=== PATIENT | female | born 1995 | race Caucasian/White ===

== ENCOUNTER 2018-12-19 15:08 | Emergency (ER) | payer OTHER ==
[~2018-12-19] VITALS: Ht 165.1 cm; Wt 72.6 kg
[~2018-12-19 15:08] MED LIST: CLOT1TC TOP; LORA10ER PO; METPHE18ER PO; TOBR.3OPSO OP; Veetids 500500 MG PO
[2018-12-19] MEDS ORDERED: BENZ100A PO (16:05)
[2018-12-19] MEDS ORDERED: Ventolin/Prove6.7 GM INH (16:05)
[2018-12-19] MEDS ORDERED: ROBITUSSIN COU237 ML PO (16:05)
== END 2018-12-19 16:14 | disposition home or self-care (01) ==
LOC: ER 15:08
DX: J20.9 Acute bronchitis, unspecified (principal); J45.909 Unspecified asthma, uncomplicated; F17.200 Nicotine dependence, unspecified, uncomplicated
CPT/HCPCS: 94640; 99283-25

== ENCOUNTER 2020-02-04 13:05 | Emergency (ER) | payer BC ==
[~2020-02-04] VITALS: Ht 165.1 cm; Wt 65.8 kg
[~2020-02-04 13:05] MED LIST changes: +BENZ100A PO; +ROBITUSSIN COU237 ML PO; +Ventolin/Prove6.7 GM INH
[2020-02-04] MEDS ORDERED: Prednisone20 MG PO (14:36)
== END 2020-02-04 16:16 | disposition home or self-care (01) ==
LOC: ER 13:05
DX: J45.901 Unspecified asthma with (acute) exacerbation (principal); F17.200 Nicotine dependence, unspecified, uncomplicated; Z79.899 Other long term (current) drug therapy
CPT/HCPCS: 71045; 94640; 99285-25; 99407; J7512

== ENCOUNTER → 2020-06-11 | Outpatient (CLI) | payer BC, OTHER ==
[~2020-06-11] MED LIST changes: +Prednisone20 MG PO
== END | disposition home or self-care (01) ==
LOC: LAB SHORT 08:21 → PLD 08:21
DX: L30.9 Dermatitis, unspecified (principal)
CPT/HCPCS: 88305; 88312

== ENCOUNTER → 2021-11-20 | Outpatient (CLI) | payer BC, OTHER | END | disposition home or self-care (01) | LOC: LAB 16:29 → LAB SHORT 16:29 | DX: L02.01 Cutaneous abscess of face (principal) | CPT/HCPCS: 87070; 87075; 87076; 87205 ==

== ENCOUNTER 2023-03-07 12:57 | Emergency (ER) | payer OTHER ==
[~2023-03-07] VITALS: Ht 167.6 cm; Wt 74.8 kg
[~2023-03-07 12:57] MED LIST changes: +CEPH500 PO; +Pyridium100 MG PO
[2023-03-07 13:12] VITALS: BP 133/79
[2023-03-07] MEDS ORDERED: PENVK500 PO (13:42)
== END 2023-03-07 14:08 | disposition home or self-care (01) ==
LOC: ER 12:57
DX: J02.0 Streptococcal pharyngitis (principal); F17.200 Nicotine dependence, unspecified, uncomplicated
CPT/HCPCS: 87430; 99283; A9270; J1100

== ENCOUNTER 2023-03-24 09:21 | Emergency (ER) | payer SELFPAY ==
[~2023-03-24] VITALS: Ht 162.6 cm; Wt 72.6 kg
[~2023-03-24 09:21] MED LIST changes: +PENVK500 PO
[2023-03-24 10:05] VITALS: BP 135/93
== END 2023-03-24 10:10 | disposition home or self-care (01) ==
LOC: ER 09:21
DX: J02.0 Streptococcal pharyngitis (principal); F17.200 Nicotine dependence, unspecified, uncomplicated; F90.9 Attention-deficit hyperactivity disorder, unspecified type; F60.3 Borderline personality disorder
CPT/HCPCS: 99282

== ENCOUNTER 2024-09-28 12:36 | Emergency (ER) | payer SELFPAY ==
[~2024-09-28] VITALS: Ht 165.1 cm; Wt 72.6 kg
[2024-09-28 13:16] VITALS: BP 115/96
== END 2024-09-28 14:13 | disposition home or self-care (01) ==
LOC: ER 12:36
DX: T23.202A Burn of second degree of left hand, unspecified site, initial encounter (principal); S63.502A Unspecified sprain of left wrist, initial encounter; S51.811A Laceration without foreign body of right forearm, initial encounter; X11.8XXA Contact with other hot tap-water, initial encounter; W19.XXXA Unspecified fall, initial encounter; W26.9XXA Contact with unspecified sharp object(s), initial encounter
CPT/HCPCS: 73110; 99283-25

== ENCOUNTER 2025-02-03 11:21 | Emergency (ER) | payer SELFPAY ==
[~2025-02-03] VITALS: Ht 162.6 cm; Wt 69.4 kg
[2025-02-03 11:37] VITALS: BP 142/79
[2025-02-03] MEDS ORDERED: AMOX500 PO (11:41)
[2025-02-03] MEDS ORDERED: HYDR1TAB94 PO (11:41)
== END 2025-02-03 11:47 | disposition home or self-care (01) ==
LOC: ER 11:21
DX: K04.7 Periapical abscess without sinus (principal); F17.200 Nicotine dependence, unspecified, uncomplicated; Z88.0 Allergy status to penicillin
CPT/HCPCS: 99282